=== PATIENT | male | born 1965 | race Caucasian/White ===

== ENCOUNTER → 2018-05-05 | Outpatient (CLI) | payer MEDICARE, MEDICAID | LOC: YCFC.O 11:22 | PROVIDERS: ATTEND Family Medicine | DX: R11.2 Nausea with vomiting, unspecified (principal); E78.2 Mixed hyperlipidemia; N40.0 Benign prostatic hyperplasia without lower urinary tract symptoms; K92.2 Gastrointestinal hemorrhage, unspecified; K92.1 Melena ==

== ENCOUNTER 2018-08-25 07:30 | Day surgery (SDC) | payer MEDICARE, MEDICAID ==
[2018-08-25] MEDS ORDERED: fentaNYL CITRATE INJ 50 MCG/ML AMP ONE (07:36)
[2018-08-25] MEDS ORDERED: MIDAZOLAM INJ 2 MG/2 ML VIAL ONE (07:36)
[2018-08-25] MEDS: LACTATED RINGERS 1,000 ML ONE (08:20)
[2018-08-25] MEDS ORDERED: PROPOFOL 200 MG/20 ML VIAL IV ONE (10:00)
--- NOTE | 2018-08-25 10:00 | OP ---
DATE OF PROCEDURE: 08/25/18 PREOPERATIVE DIAGNOSIS: 1. Nausea and vomiting. 2. Weight loss. 3. Positive fecal occult blood. POSTOPERATIVE DIAGNOSIS: 1. Esophagitis. 2. Gastritis. PROCEDURE: 1. Esophagogastroduodenoscopy plus biopsy. SURGEON: Dar Kinney MD. COMPLICATIONS: None apparent. BLOOD LOSS: None. MEDICATIONS: Monitored anesthesia care. DESCRIPTION OF PROCEDURE: Informed consent was obtained prior to sedation. The preprocedure cardiopulmonary assessment was satisfactory. The patient was placed in the left lateral decubitus position and was sedated. The tip of the Olympus esophagogastroduodenoscope was inserted in the oropharynx and carefully advanced through the cricopharyngeus into the esophageal lumen. The esophagus was significant for distal erosive esophagitis. I am not sure if this reflects his reflux or just the recurrent vomiting or a combination of the two. At any rate, I biopsied this grade D esophagitis. The stomach was examined with direct and retroflexed views. The antrum, body, fundus, cardia and incisura were examined. There was quite a bit of fluid in the fundus. I suctioned this away. There is no food in the stomach. The patient does not have a gastric outlet obstruction. The pylorus is open and no gastric ulceration. There is gastritis of the antrum and distal body. Biopsies of the gastritis were obtained. The duodenum was examined to the third portion and it was unremarkable. There was no evidence of an obstructing lesion there. The procedure was then terminated. ENDOSCOPIC FINDINGS: 1. Grade D esophagitis. This is likely related to his nausea and vomiting, but could also be from reflux. 2. Gastritis. 3. No mechanical source of obstruction to account for his recurrent nausea and vomiting. RECOMMENDATIONS: 1. Followup on the biopsy results. 2. Gastric emptying study. #[id number] cc: [facility], Dr. Wilfredo REYNOSO
[2018-08-25 10:38] VITALS: BP 121/80; TEMP 96.4; O2SAT 98
== END 2018-08-25 10:30 | disposition home or self-care (01) ==
LOC: AMB 07:30
PROVIDERS: ATTEND Internal Medicine Gastroenterology
DX: R11.2 Nausea with vomiting, unspecified (principal); K29.50 Unspecified chronic gastritis without bleeding; K21.0 Gastro-esophageal reflux disease with esophagitis; R63.4 Abnormal weight loss; R19.5 Other fecal abnormalities; F41.9 Anxiety disorder, unspecified; F32.9 Major depressive disorder, single episode, unspecified; F17.210 Nicotine dependence, cigarettes, uncomplicated; I10 Essential (primary) hypertension; K59.00 Constipation, unspecified; I25.119 Atherosclerotic heart disease of native coronary artery with unspecified angina pectoris; E11.9 Type 2 diabetes mellitus without complications; J44.9 Chronic obstructive pulmonary disease, unspecified; Z79.899 Other long term (current) drug therapy
CPT/HCPCS: 00731; 43239; 88305; 88342; J2250; J3010; J3490; J7120

== ENCOUNTER → 2018-09-08 | Outpatient (CLI) | payer MEDICARE, MEDICAID ==
--- NOTE | 2018-09-08 17:10 | NM ---
NUCLEAR MEDICINE GASTRIC EMPTYING 4 HOUR HISTORY: Nausea and vomiting. COMPARISON: None FINDINGS: Patient was fed 94 uCi of technetium 99m sulfur colloid mixed with scrambled eggs, toast, and 4 ounces water, using the standard meal. Percent gastric retention is as follows: 1 hour: 54% (normal equals 30-90%) 2 hour: 22% (upper limit of normal is 60%) 3 hour: 18% (upper limit of normal is 30%) 4 hour: 5% (upper limit of normal is 10%) Gastric emptying half-time not calculated, but approximately 1 hour. IMPRESSION: Normal gastric emptying study utilizing technetium 99m sulfur colloid with meal. Electronically signed by: Janak Presley MD 09/08/2018 5:09 PM CLAIM PROFESSIONAL
== END ==
LOC: NM 10:00
PROVIDERS: ATTEND Internal Medicine Gastroenterology
DX: R11.2 Nausea with vomiting, unspecified (principal)
CPT/HCPCS: 78264; A9541

== ENCOUNTER 2018-10-20 05:55 | Day surgery (SDC) | payer MEDICARE, MEDICAID ==
[2018-10-20] MEDS ORDERED: LACTATED RINGERS 1,000 ML ONE (06:53)
[2018-10-20] MEDS ORDERED: PROPOFOL 200 MG/20 ML VIAL IV ONE (07:00)
[2018-10-20] MEDS ORDERED: METOCLOPRAMIDE HCL INJ 10 MG/2 ML VIAL ONE (07:00)
[2018-10-20] MEDS ORDERED: LIDOCAINE 1% 10 ML VIAL INJ ONE (07:00)
[2018-10-20] MEDS ORDERED: FAMOTIDINE IV PREMIX 50 ML IVPB ONE ×2 (08:13→09:40)
[2018-10-20] MEDS: [UNRECOGNIZED DRUG - OTHER] IVPB ONE ×2 (08:15→09:45)
[2018-10-20] MEDS: FAMOTIDINE IVPB ONE ×2 (08:15→09:45)
[2018-10-20] MEDS ORDERED: MIDAZOLAM INJ 2 MG/2 ML VIAL ONE ×2 (09:20→11:11)
[2018-10-20] MEDS: SODIUM PHOS/BIPHOS ENEMA ADULT 133 ML BTTL PR ONE ×3 (09:53→10:39)
[2018-10-20] MEDS ORDERED: SODIUM PHOS/BIPHOS ENEMA ADULT 133 ML BTTL PR ONE (10:15)
[2018-10-20] MEDS ORDERED: ELECTROLYTE-A 1,000 ML IVS ONE (11:34)
[2018-10-20 12:09] VITALS: TEMP 98.2
[2018-10-20 12:33] VITALS: BP 132/88; O2SAT 98
--- NOTE | 2018-10-20 13:15 | OP ---
DATE OF PROCEDURE: 10/20/18 PREOPERATIVE DIAGNOSIS: 1. Change in bowel habits. 2. Positive fecal occult blood. POSTOPERATIVE DIAGNOSIS: 1. Incomplete colonoscopy. We reached the ascending colon, but the goal was to reach the cecum. 2. Colon filled with thick liquid stool. PROCEDURE: 1. Colonoscopy. SURGEON: Dar Kinney MD. COMPLICATIONS: None apparent. BLOOD LOSS: None. MEDICATIONS: Monitored anesthesia care. DESCRIPTION OF PROCEDURE: Informed consent was obtained prior to sedation. The preprocedure cardiopulmonary assessment was satisfactory. The patient was placed in the left lateral decubitus position and was sedated. A digital rectal exam revealed solid stool in the rectum. We stopped the procedure at that point to allow the patient to wake up and administered three enemas this morning to evacuate the solid stool out of the distal colon. Once that had been accomplished, we then tried to complete the colonoscopy. Once the patient was sedated a second time, a digital rectal exam revealed no solid stool or any rectal masses in the rectal vault. The tip of the Olympus colonoscope was inserted in the rectum and guided towards the cecum. There was thick liquid throughout the colon. It kept clogging the suction channel. I used lots of irrigation and tried to wash off the colon alvares and suction the residual fluid and debris that was in the colon, however, I could not clear out all of the colon. We did not reach the cecum, but got to the ascending colon. The residual liquid and stool kept me from being able to successfully reach the cecum. However, to that point, I did not find any obstructing masses. We did not see anything that would account for his constipation or positive fecal occult blood. However, small polyps and small nonobstructing cancers could have been missed. The procedure was terminated. RECOMMENDATIONS: If at some point he can tolerate a full prep and we can get him adequately cleaned out, a repeat attempted colonoscopy should be done. The patient continued to have nausea and vomiting. His significant other does state that he is taking the antireflux medicine prescribed. She is also describing to me what sounds like an issue with dysphagia. There was nothing on EGD to account for dysphagia like an obstructing lesion. I think the dysphagia needs to be investigated further and we are going to set up a barium swallow here in [place] for him. A gastric emptying study was unremarkable and does not account for any nausea and vomiting. I still think he may be having side effects from medications. He does not really give symptoms suggestive of a central nervous system lesion such as diplopia or loss of balance and equilibrium. I would ask Dr. Villalobos and [facility] to try to reduce the medicines he is taking and search for a possible culprit that could be contributing to this persistent nausea. #[id number] cc: Jimmy Villalobos MD, [facility]
== END 2018-10-20 12:25 | disposition home or self-care (01) ==
LOC: AMB 05:55
PROVIDERS: ATTEND Internal Medicine Gastroenterology
DX: R19.4 Change in bowel habit (principal); R19.5 Other fecal abnormalities; K21.0 Gastro-esophageal reflux disease with esophagitis; F41.9 Anxiety disorder, unspecified; F32.9 Major depressive disorder, single episode, unspecified; I10 Essential (primary) hypertension; I25.10 Atherosclerotic heart disease of native coronary artery without angina pectoris; J44.9 Chronic obstructive pulmonary disease, unspecified; F17.210 Nicotine dependence, cigarettes, uncomplicated; Z79.899 Other long term (current) drug therapy
CPT/HCPCS: 00811; 45378; J2250; J2765; J3490; J7120

== ENCOUNTER → 2018-11-09 | Outpatient (CLI) | payer MEDICARE, MEDICAID ==
--- NOTE | 2018-11-09 17:22 | RAD ---
EXAM DESCRIPTION: Barium Swallow: Rad-Fluoroscopy. CLINICAL HISTORY: DYSPHAGIA COMPARISON: None TECHNIQUE: The patient swallowed barium pill with water. The patient swallowed gas-producing granules, water, and heavy density barium under fluoroscopic visualization. The images were obtained with the patient upright and horizontal. Patient also drank medium density barium through a straw in the semi-prone position. 76 fluoroscopic cine loop images. 7 static fluoroscopic images. Total fluoroscopy time was 3.2 minutes. DAP: 13.2 Gy-cm2.. Total dose 65.6 mGy. FINDINGS: The patient had no difficulty swallowing the barium pill with water and there was no obstruction to passage into the stomach. When patient swallowed barium, there were usually at least 2 swallows to empty the oral cavity. No mass effect on the swallowing mechanism. No shanel laryngeal penetration or aspiration. Primary peristaltic wave is unremarkable. No significant secondary or tertiary contractions. No mass effect. Small irregularities are noted in the mucosa of the distal esophagus. No sliding hiatal hernia. No gastroesophageal reflux was noted or could be produced with maneuvers such as coughing and Valsalva. No gross mucosal lesions in the included stomach and duodenum. No obstruction or mass effect. IMPRESSION: 1. Patient took several swallows to empty the oral cavity. No shanel laryngeal aspiration. No mass effect on the swallowing mechanism. 2. No mass effect on the esophagus. No abnormal contractions. Small mucosal lesions may represent esophagitis in the distal esophagus. Gastroesophageal reflux was demonstrated or induced. No hiatal hernia. No gastroduodenal obstruction.. Electronically signed by: Janak Presely MD 11/09/2018 5:20 PM [employer]
== END ==
LOC: RAD 09:00
PROVIDERS: ATTEND Internal Medicine Gastroenterology
DX: R13.10 Dysphagia, unspecified (principal)

== ENCOUNTER → 2019-06-30 | Outpatient (CLI) | payer MEDICARE, MEDICAID | LOC: YCFC.O 09:59 | PROVIDERS: ATTEND Family Medicine | DX: Z00.00 Encounter for general adult medical examination without abnormal findings (principal); R11.10 Vomiting, unspecified; E78.5 Hyperlipidemia, unspecified; Z12.5 Encounter for screening for malignant neoplasm of prostate | CPT/HCPCS: 36415; 80053; 80061; 81001; 82150; 83690; 84443; 85025; 87077; 87086; 87186; G0103 ==